=== PATIENT | female | born 1985 | race Caucasian/White ===

== ENCOUNTER 2020-11-25 17:39 | Emergency (ER) | payer SELFPAY ==
[~2020-11-25] VITALS: Ht 160 cm; Wt 121.0 kg
[2020-11-25 17:41] VITALS: BP 121/79
[2020-11-25] MEDS ORDERED: TETANUS, DIPHTHERIA, PERTUSSIS VAC/PF 0.5ML (>7YR OLD) IM ONE (18:00)
[2020-11-25] MEDS ORDERED: IBUPROFEN 600MG TABLET PO ONE (18:00)
[2020-11-25] MEDS ORDERED: LIDOCAINE HCL 1% 20ML VIAL (Pyxis) INJ INFIL ONE (18:00)
[2020-11-25] MEDS ORDERED: BACITRACIN ZINC OINT UDPKT TOP ONE (18:00)
[2020-11-25] MEDS ORDERED: CEFTRIAXONE SODIUM 1 G/VIAL IM ONE (18:00)
== END 2020-11-25 18:55 | disposition home or self-care (01) ==
LOC: ER 17:39
DX: T22.211A Burn of second degree of right forearm, initial encounter (principal); T31.0 Burns involving less than 10% of body surface; T79.9XXA Unspecified early complication of trauma, initial encounter; Z98.890 Other specified postprocedural states
CPT/HCPCS: 16020; 81025; 90471; 90715; 96372; 99284; J0696; J3490